=== PATIENT | female | born 1980 | race Caucasian/White ===

== ENCOUNTER 2016-11-22 00:46 | Day surgery (SDC) | payer OTHER ==
[2016-11-22 01:23] VITALS: BMI 22.8
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
[2016-11-22] MEDS ORDERED: ONDANSETRON 4 MG/2 ML VIAL IVPUSH STA (03:50)
[2016-11-22] MEDS ORDERED: morphine CARPU-JECT 2 MG/1 ML DISP.SYRIN IVPUSH ONE (03:50)
[2016-11-22] MEDS ORDERED: FAMOTIDINE 20 MG/50 ML IVPB 20 MG in PREMIX 50 IVPB ONE (03:50)
[2016-11-22] MEDS ORDERED: SODIUM CHLORIDE 1,000 ML IV STA (03:50)
[2016-11-22] MEDS ORDERED: morphine CARPU-JECT 2 MG/1 ML DISP.SYRIN ONE ×2 (03:57→10:17)
[2016-11-22] MEDS ORDERED: ONDANSETRON 4 MG/2 ML VIAL ONE (03:58)
[2016-11-22] MEDS ORDERED: FAMOTIDINE 20 MG/50 ML IVPB 50 ML IVPB ONE (03:58)
[2016-11-22 04:48] LABS: BASOPHIL 0.1 % (0-2.0); EOSINOPHIL 0.1 % (0-4.5); MCH 29.1 pg (25.7-33.7); MCHC 32.2 g/dl (32.0-36.0); MEAN CELL VOLUME 90.3 fl (80-96); MEAN PLT VOLUME 8.8 fl (7.5-11.1); NEUTROPHILS 86.7 % (42.8-82.8); PLATELET COUNT 213 K/MM3 (134-434); WHITE BLOOD COUNT 11.7 K/mm3 (4.0-10.0)
[2016-11-22 04:57] LABS: URINE COLOR YELLOW
[2016-11-22 04:58] LABS: PH,URINE 6.5 (5.0-8.0); URINE APPEARANCE CLEAR; URINE BILIRUBIN NEGATIVE (NEGATIVE); URINE BLOOD NEGATIVE (NEGATIVE); URINE GLUCOSE (UA) NEGATIVE (NEGATIVE); URINE KETONE NEGATIVE (NEGATIVE); URINE LEUK ESTERASE NEGATIVE (NEGATIVE); URINE NITRITE NEGATIVE (NEGATIVE); URINE PROTEIN NEGATIVE (NEGATIVE); URINE UROBILINOGEN 0.2 E.U/dl E.U./dl (0.2-1.0)
[2016-11-22 05:15] LABS: CREATININE 0.6 mg/dL (0.55-1.02); GLUCOSE,RANDOM 118 mg/dL (74-106)
[2016-11-22 05:16] LABS: ALBUMIN 4.2 g/dl (3.4-5.0); ANION GAP 11 (8-16); BILIRUBIN,TOTAL 0.8 mg/dL (0.2-1.0); CO2 26 mmol/L (21-32); SGOT/AST 23 U/L (15-37); TOT PROT 7.3 g/dl (6.4-8.2)
[2016-11-22 05:17] LABS: ALK PHOS 76 U/L (45-117); AMYLASE 34 U/L (25-115); SGPT/ALT 26 U/L (12-78)
[2016-11-22] MEDS ORDERED: METRONIDAZOLE 500 MG PREMIXED 100 ML IVPB ONE (06:34)
[2016-11-22] MEDS ORDERED: LEVOFLOXACIN 500 MG IVPB 100 ML IVPB ONE (06:34)
[2016-11-22] MEDS ORDERED: HYDROmorphone HCL CARPU-JECT 1 MG/1 ML DISP.SYRIN IVPUSH ONE (06:35)
[2016-11-22] MEDS ORDERED: PIPERACILLIN/TAZOB 3.375 GM 3.375 GM in DEXTROSE 5%-WATER - 50 ML IVPB ONE (06:37)
[2016-11-22] MEDS ORDERED: HYDROmorphone HCL CARPU-JECT 1 MG/1 ML DISP.SYRIN ONE (06:59)
[2016-11-22] MEDS ORDERED: PIPERACILLIN/TAZOB 3.375 GM 50 ML IVPB ONE (07:00)
[2016-11-22] MEDS: DEXTROSE 5%-0.45% SALINE 1,000 ML IV SCH ×2 (07:12→07:49)
[2016-11-22] MEDS ORDERED: ACETAMINOPHEN 325 MG TABLET (FP) PO PRN ×4 (07:19→15:48)
[2016-11-22] MEDS ORDERED: ONDANSETRON 4 MG/2 ML VIAL IVPB PRN ×2 (07:19→14:48)
[2016-11-22] MEDS ORDERED: morphine CARPU-JECT 2 MG/1 ML DISP.SYRIN IVPUSH PRN ×2 (07:19→12:30)
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
[2016-11-22] MEDS ORDERED: SODIUM CHLORIDE 1,000 ML IV SCH ×2 (07:30→14:48)
[2016-11-22] MEDS ORDERED: BUPIVACAINE HCL/PF 0.5% (5MG/ML) 10 ML VIAL ONE (12:12)
[2016-11-22] MEDS ORDERED: MIDAZOLAM HCL 2 MG/2 ML SINGLE DOSE VIAL ONE (12:46)
[2016-11-22] MEDS ORDERED: PROPOFOL 20 ML ONE (12:46)
[2016-11-22] MEDS ORDERED: DEXAMETHASONE SOD PHOSPHATE 4 MG/1 ML VIAL ONE (13:03)
[2016-11-22] MEDS ORDERED: ceFAZolin SODIUM 1 GM VIAL ONE (13:03)
[2016-11-22] MEDS ORDERED: ceFAZolin SODIUM 1 GM VIAL IVPB ONE (13:05)
[2016-11-22] MEDS ORDERED: ROCURONIUM BROMIDE 50 MG/5 ML VIAL ONE (13:18)
[2016-11-22] MEDS ORDERED: NEOSTIGMINE METHYLSULFATE 0.5 MG/ML - 10 ML MDV ONE (14:06)
[2016-11-22] MEDS ORDERED: GLYCOPYRROLATE 0.2 MG/1 ML VIAL ONE (14:06)
[2016-11-22] MEDS ORDERED: BUPIVACAINE HCL/PF 0.5% (5MG/ML) 10 ML VIAL IJ ONE (14:14)
--- NOTE | 2016-11-22 14:22 | CONSULT ---
Consult Consult Specialty:: infectious diseases Reason for Consultation:: appendicitis - History of Present Illness Chief Complaint: abd pain History of Present Illness: healthy 35 year old female who presented to the ED overnight complaining of abdominal pain. The pain began gradual yesterday, and worsened overnight. It is worst in the RLQ and radiates to the back. She reports associated nausea. She denies constipation/diarrhea, fevers/chills, dysuria, or any other symptoms. patient was worked and with ct scan showed acute appendicits patient was taken tot he or and was operated patient post op doing well except pain at the site - History Source History Provided By: Patient, Medical Record Limitations to Obtaining History: No Limitations - Smoking History Smoking history: Never smoked Home Medications - Allergies Allergies/Adverse Reactions: Allergies Allergy/AdvReac Type Severity Reaction Status Date / Time No Known Allergies Allergy Verified 11/22/16 01:15 - Home Medications Home Medications: Ambulatory Orders NK [No Known Home Medication] 11/22/16 Review of Systems - Review of Systems Constitutional: reports: No Symptoms Eyes: reports: No Symptoms HENT: reports: No Symptoms Neck: reports: No Symptoms Cardiovascular: reports: No Symptoms Respiratory: reports: No Symptoms Gastrointestinal: reports: Abdominal Pain, Other (rlq) Neurological: reports: No Symptoms Endocrine: reports: No Symptoms Hematology/Lymphatic: reports: No Symptoms Physical Exam Vital Signs: Vital Signs Temperature 97.8 F 11/22/16 09:59 Pulse Rate 78 11/22/16 09:59 Respiratory Rate 18 11/22/16 09:59 Blood Pressure 118/62 11/22/16 09:59 O2 Sat by Pulse Oximetry (%) 100 11/22/16 10:06 Constitutional: Yes: Calm, Mild Distress (post op) Cardiovascular: Yes: Regular Rate and Rhythm Respiratory: Yes: Regular, CTA Bilaterally Gastrointestinal: Yes: Normal Bowel Sounds, Soft Musculoskeletal: Yes: WNL Extremities: Yes: WNL Wound/Incision: Yes: Well Approximated, Dressing Dry and Intact Neurological: Yes: Alert, Oriented Psychiatric: Yes: Alert Imaging - Results Chest X-ray: Report Reviewed, Image Reviewed Cat Scan: Report Reviewed, Image Reviewed Assessment/Plan - Problem (1) Acute appendicitis Code(s): K35.80 - UNSPECIFIED ACUTE APPENDICITIS Qualifiers: Acute appendicitis type: unspecified acute appendicitis type Qualified Code(s): K35.80 - Unspecified acute appendicitis plan will hold of on starting anything as it was clean appendectomy
[2016-11-22] MEDS ORDERED: OXYCODONE/APAP 5/325MG COMBO TABLET PO PRN ×4 (14:24→14:45)
--- NOTE | 2016-11-22 14:37 | CONSULT ---
Consult Consult Specialty:: surgery Reason for Consultation:: appendicitis - History of Present Illness Chief Complaint: rlq pain History of Present Illness: patient with 1 day hx of RLQ pain. +N/V. no fever/chills. +hungry. came to ER and had mild leukocytosis to [address] showing appendicitis with fecalith. - History Source History Provided By: Patient Limitations to Obtaining History: No Limitations - Past Surgical History Additional Surgical History: left leg surgery - Smoking History Smoking history: Never smoked Home Medications - Allergies Allergies/Adverse Reactions: Allergies Allergy/AdvReac Type Severity Reaction Status Date / Time No Known Allergies Allergy Verified 11/22/16 01:15 - Home Medications Home Medications: Ambulatory Orders Oxycodone HCl/Acetaminophen [Percocet 5-325 mg Tablet] 1 tab PO Q4H PRN #30 tablet MDD 6 tabs 11/22/16 Family Disease History - Family Disease History Family History: Unremarkable Review of Systems - Review of Systems Constitutional: denies: Chills, Fever Eyes: denies: Blurred Vision, Photophobia HENT: denies: Difficult Swallowing, Mouth Swelling Neck: denies: Decreased ROM, Lumps Cardiovascular: denies: Chest Pain, Edema Respiratory: denies: Cough, Exercise Intolerance Gastrointestinal: reports: Abdominal Pain, Nausea. denies: Bloating Genitourinary: denies: Burning, Discharge Breasts: denies: Pain, Skin Changes Musculoskeletal: denies: Back Pain, Crepitus Integumentary: denies: Blister, Bruising Neurological: denies: Change in LOC, Change in Speech Endocrine: denies: Excessive Sweating, Flushing Hematology/Lymphatic: denies: Easily Bruised, Excessive Bleeding Psychiatric: denies: Altered Sleep Pattern, Anxiety Physical Exam Vital Signs: Vital Signs Temperature 97.8 F 11/22/16 09:59 Pulse Rate 78 11/22/16 09:59 Respiratory Rate 18 11/22/16 09:59 Blood Pressure 118/62 11/22/16 09:59 O2 Sat by Pulse Oximetry (%) 100 11/22/16 10:06 Constitutional: Yes: No Distress, Calm Eyes: Yes: Conjunctiva Clear, EOM Intact HENT: Yes: Atraumatic, Normocephalic Neck: Yes: Supple, Trachea Midline Cardiovascular: Yes: Regular Rate and Rhythm Respiratory: Yes: Regular, CTA Bilaterally Gastrointestinal: Yes: Soft, Tenderness. No: Distention ...Rectal Exam: Yes: Deferred Renal/: No: CVA Tenderness - Left, CVA Tenderness - Right Breast(s): No: Nipple Inversion, Skin Changes Musculoskeletal: No: Joint Stiffness, Joint Swelling Extremities: No: Calf Tenderness, Erythema Integumentary: No: Erythema, Rash Neurological: Yes: Alert, Oriented Psychiatric: Yes: Alert, Oriented Imaging - Results Cat Scan: Report Reviewed Problem List - Problems (1) Acute appendicitis Assessment/Plan: for lap appy. r/b/a d/w pt. likely d/c home postop rx for percocet transmitted postop instructions given f/u with me in office in 1-2 weeks Code(s): K35.80 - UNSPECIFIED ACUTE APPENDICITIS Qualifiers: Acute appendicitis type: unspecified acute appendicitis type Qualified Code(s): K35.80 - Unspecified acute appendicitis
--- NOTE | 2016-11-22 14:38 | OP ---
Operative Note - Note: Operative Date: 11/22/16 Pre-Operative Diagnosis: appendicitis Operation: lap appendectomy Findings: appendicitis Post-Operative Diagnosis: Same as Pre-op Surgeon: Ej Marks Anesthesia: General Estimated Blood Loss (mls): 5 Operative Report Dictated: Yes
[2016-11-22] MEDS ORDERED: DEXTROSE 5%-0.45% SALINE 1,000 ML IV SCH (14:48)
--- NOTE | 2016-11-22 15:24 | DS ---
Physical Exam: SUBJECTIVE: Patient seen and examined, feeling well except for mild pain at incision site. OBJECTIVE: Vital Signs Period Temp Pulse Resp BP Sys/Rios Pulse Ox Last 24 Hr 97.8 F-98.8 F 78-89 16-18 118-131/62-83 99-100 PHYSICAL EXAM GENERAL: The patient is awake, alert, and fully oriented, in no acute distress. HEAD: Normal with no signs of trauma. EYES: PERRL, extraocular movements intact, sclera anicteric, conjunctiva clear. ENT: Ears normal, nares patent, oropharynx clear without exudates, moist mucous membranes. NECK: Trachea midline, full range of motion, supple. LUNGS: Breath sounds equal, clear to auscultation bilaterally, no wheezes, no crackles, no accessory muscle use. HEART: Regular rate and rhythm, S1, S2 without murmur, rub or gallop. ABDOMEN: Soft, incision site clean/dry/intact, nondistended, normoactive bowel sounds, no guarding, no rebound, no hepatosplenomegaly, no masses. EXTREMITIES: 2+ pulses, warm, well-perfused, no edema. NEUROLOGICAL: Cranial nerves II through XII grossly intact. Normal speech, gait not observed. PSYCH: Normal mood, normal affect. SKIN: Warm, dry, normal turgor, no rashes or lesions noted. LABS Laboratory Results - last 24 hr 11/22/16 11/22/16 11/22/16 03:48 03:52 03:52 WBC 11.7 H RBC 4.52 Hgb 13.1 Hct 40.8 MCV 90.3 MCHC 32.2 RDW 13.0 Plt Count 213 MPV 8.8 Neutrophils % 86.7 H Lymphocytes % 9.1 Monocytes % 4.0 Eosinophils % 0.1 Basophils % 0.1 Sodium 137 Potassium 4.0 Chloride 100 Carbon Dioxide 26 Anion Gap 11 BUN 10 Creatinine 0.6 Creat Clearance w eGFR > 60 Random Glucose 118 H Calcium 9.0 Total Bilirubin 0.8 AST 23 ALT 26 Alkaline Phosphatase 76 Total Protein 7.3 Albumin 4.2 Total Amylase 34 Urine Color Yellow Urine Appearance Clear Urine pH 6.5 Ur Specific [place] 1.025 Urine Protein Negative Urine Glucose (UA) Negative Urine Ketones Negative Urine Blood Negative Urine Nitrite Negative Urine Bilirubin Negative Urine Urobilinogen 0.2 e.u/dl Ur Leukocyte Esterase Negative Urine HCG, Qual Negative Blood Type Antibody Screen 11/22/16 06:35 WBC RBC Hgb Hct MCV MCHC RDW Plt Count MPV Neutrophils % Lymphocytes % Monocytes % Eosinophils % Basophils % Sodium Potassium Chloride Carbon Dioxide Anion Gap BUN Creatinine Creat Clearance w eGFR Random Glucose Calcium Total Bilirubin AST ALT Alkaline Phosphatase Total Protein Albumin Total Amylase Urine Color Urine Appearance Urine pH Ur Specific [place] Urine Protein Urine Glucose (UA) Urine Ketones Urine Blood Urine Nitrite Urine Bilirubin Urine Urobilinogen Ur Leukocyte Esterase Urine HCG, Qual Blood Type B POSITIVE Antibody Screen Negative HOSPITAL COURSE: This is an otherwise healthy 35 year old female who presented to the ED overnight complaining of abdominal pain and was admitted with acute appendicitis. She underwent appendectomy today and is doing well post-op. She has been cleared for discharge by surgery. She will be discharged with Percocet for pain. No indication for antibiotics per ID. Date of Admission:11/22/16 Date of Discharge: 11/22/16 Minutes to complete discharge: 35 Discharge Summary Reason For Visit: ACUTE APPENDICITIS Current Active Problems Acute appendicitis (Acute) DVT prophylaxis (Acute) Condition: Good - Instructions Diet, Activity, Other Instructions: can have liquids then regular diet. can shower tomorrow. no heavy lifting 30 lbs x 3 days. 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 Referrals: jE Marks MD [Staff Physician] - STAFF,NOT ON [Primary Care Provider] - - Home Medications Comprehensive Discharge Medication List: Ambulatory Orders Oxycodone HCl/Acetaminophen [Percocet 5-325 mg Tablet] 1 tab PO Q4H PRN #30 tablet MDD 6 tabs 11/22/16 Problem List - Problems (1) Acute appendicitis Code(s): K35.80 - UNSPECIFIED ACUTE APPENDICITIS Qualifiers: Acute appendicitis type: unspecified acute appendicitis type Qualified Code(s): K35.80 - Unspecified acute appendicitis (2) DVT prophylaxis Code(s): HGL0696 - This patient is new to me today: No Emergency Visit: Yes ED Registration Date: 11/21/16 Care time: The patient presented to the Emergency Department on the above date and was hospitalized for further evaluation of their emergent condition. Critical Care patient: No - Discharge Referral Referred to [facility] Med [facility] No
--- NOTE | 2016-11-22 15:37 | OP ---
DATE OF OPERATION: 11/22/2016 PREOPERATIVE DIAGNOSIS: Appendicitis. POSTOPERATIVE DIAGNOSIS: Appendicitis. PROCEDURE: Laparoscopic appendectomy. SURGEON: Rebeca Marks MD ESTIMATED BLOOD LOSS: Minimal. FINDINGS: Large dilated appendix. OPERATIVE NOTE IN DETAIL: Patient was brought to the operating room after confirming name, date of , and medical record number. Placed in supine position. SCDs for DVT prophylaxis. She received appropriate perioperative antibiotics. She was then induced and intubated by the anesthesiologist, and she had a Collazo catheter placed under sterile conditions. She was then prepped and draped in usual sterile fashion. A timeout was then performed. A 1-inch incision was made infraumbilically as I did not want to go through her prior belly button ring. I bluntly dissected down to the fascia and used electrocautery to score the anterior sheath. I then lifted up the abdominal wall, continued to go through the fascia with electrocautery, and then used a Shanelle clamp to go through her peritoneum. At this point, I placed my finger inside the abdomen, ensured no adhesions, and then placed a 12-mm balloon Berna-type trocar inside the abdomen. I then insufflated the abdomen to a pressure of 15 mmHg. I then placed a 5-mm trocar in the suprapubic region and in the left lower quadrant. This was done under transillumination to avoid injury to the abdominal wall blood vessels. She was then placed in Trendelenburg position with the right side up, and then, I draped the omentum out of the pelvis and over the stomach. I then was able to roll the terminal ileum medially a little bit, and then, I found a large dilated appendix. Once with this dilated appendix, I peeled the omentum off of it. I dissected the base with a [place] dissector, and I fired a blue-load stapler at the base after confirming no injury to the ileocecal valve, and then, I used a white load to take the mesentery of the appendix. I then irrigated and aspirated out the fluid, ensured perfect hemostasis, and then desufflated the abdomen. I then removed the ports and then closed the infraumbilical fascia with a [id number] 0 Vicryl suture. The skin and subcutaneous tissues were then reinsured for hemostasis and then closed with 4-0 Monocryl in a subcutaneous fashion. Dermabond was then applied. The Collazo catheter was then removed. All counts were correct. REBECA MARKS M.D. NICHOLAS/[id number]
[2016-11-22] MEDS ORDERED: oxyCODONE HCL 5 MG TABLET PO PRN ×2 (15:47→15:48)
[2016-11-22 17:25] VITALS: TEMP 99
[2016-11-22] MEDS ORDERED: PIPERACILLIN/TAZOB 3.375 GM/50 ML PRE-DOCKED IVPB SCH (18:00)
[2016-11-22 20:06] VITALS: BP 129/72; PULSE 77
--- NOTE | 2016-11-26 13:57 | PATH ---
Surgical Pathology Report Patient Name: ETHAN WOODRUFF [facility]. Rec. #: [id number] /Age/Gender: 1980 (Age: 35) / F Account: [id number] Location: AMBULATORY SURG Taken: 11/22/2016 Received: 11/23/2016 Reported: 11/26/2016 Physicians: Ej Marks MD Specimen(s) Received APPENDIX Clinical History Acute appendicitis Final Diagnosis APPENDIX, APPENDECTOMY: MARKED ACUTE HEMORRHAGIC APPENDICITIS AND PERIAPPENDICITIS. Electronically Signed Boy Yoo M.D. Gross Description Received in formalin, labeled "appendix" is a 5 cm in length vermiform appendix with a stapled margin of resection and moderate attached fat. The serosa is hunt-purple with attached exudate. Sectioning reveals a hemorrhagic lumen with focal pus. The wall of the appendix averages 0.2 cm in thickness. Distilling Department Supervisor sections are submitted in one cassette. /11/23/201611/23/2016
== END 2016-11-22 19:15 | disposition home or self-care (01) ==
LOC: JER 00:46 → JASUSAT 06:47 → UNDOADMIN 06:47 → JERBED 06:47 → JSAMEDAYSX 10:08 → JASUSAT 19:15
PROVIDERS: ATTEND Surgery
PROC: 0DTJ4ZZ Resection of Appendix, Percutaneous Endoscopic Approach (ICD-10-PCS; principal; 2016-11-22 11:30)
DX: K35.80 Unspecified acute appendicitis (principal)
CPT/HCPCS: 36415; 71010-TC; 74177-TC; 80053; 81003; 82150; 84703; 85025; 86850; 86900; 86901; 88304-TC; 94760; 99283-25

== ENCOUNTER 2017-08-30 09:26 | Emergency (ER) | payer OTHER ==
[2017-08-30 09:30] VITALS: BP 132/76; PULSE 83; TEMP 98.5; BMI 22.6
[2017-08-30 10:12] LABS: MCHC 33.2 g/dl (32.0-36.0); MEAN CELL VOLUME 90.4 fl (80-96); MEAN PLT VOLUME 7.3 fl (7.5-11.1); PLATELET COUNT 224 K/MM3 (134-434); RDW 12.9 % (11.6-15.6); WHITE BLOOD COUNT 4.5 K/mm3 (4.0-10.0)
[2017-08-30] MEDS ORDERED: KETOROLAC TROMETHAMINE 60 MG/2 ML VIAL IM ONE (11:02)
[2017-08-30] MEDS ORDERED: KETOROLAC TROMETHAMINE 60 MG/2 ML VIAL ONE (11:11)
--- NOTE | 2017-08-30 11:51 | PDOC ---
History of Present Illness - General Chief Complaint: Sore Throat Stated Complaint: THROAT PAIN Time Seen by Provider: 08/30/17 09:54 History Source: Patient Exam Limitations: No Limitations - History of Present Illness Initial Comments: 08/30/17 11:42 Patient is a 36-year-old female, recently with upper respiratory cough and cold- like symptoms presents with submandibular palpated lymph node and right precervical lymph node. Pain when swallowing to right side of throat. Patient denies any lesions to posterior pharynx, no fever. Past Medical History: Denies. Allergies: No known allergies Medications: None Family History: Non-contributory Social History: Denies smoking, alcohol use, or IVDU Review of Systems GENERAL/CONSTITUTIONAL: No fever or chills. No weakness. No weight change. HEAD, EYES, EARS, NOSE AND THROAT: No change in vision. No ear pain or discharge. No sore throat. Palpable Lymph nodes to right precervical and submandibular. CARDIOVASCULAR: No chest pain or shortness of breath. RESPIRATORY: No cough, wheezing, or hemoptysis. GASTROINTESTINAL: No nausea, vomiting, diarrhea or constipation. No rectal bleeding. GENITOURINARY: No dysuria, frequency, or change in urination. MUSCULOSKELETAL: No joint or muscle swelling or pain. No neck or back pain. SKIN AND BREASTS: No rash or easy bruising. NEUROLOGIC: No headache, vertigo, loss of consciousness, or loss of sensation. PSYCHIATRIC: No depression or anxiety. ENDOCRINE: No increased thirst. No abnormal weight change. HEMATOLOGIC/LYMPHATIC: No anemia, easy bleeding, or history of blood clots. ALLERGIC/IMMUNOLOGIC: No hives or skin allergy. No latex allergy. Physical Exam: GENERAL: The patient is awake, alert, and fully oriented, in no acute distress. HEAD: Normal with no signs of trauma. No adhesions, no lesions. EYES: Pupils equal, round and reactive to light, extraocular movements intact, sclera anicteric, conjunctiva clear. ENT: Ears normal, nares patent, oropharynx clear without exudates. Moist mucous membranes. No uvula deviation. NECK: Normal range of motion, right anterior cervical lymphadenopathy and submandibular palpable lymph node. No surrounding erythema, no evidence of infection.. LUNGS: Breath sounds equal, clear to auscultation bilaterally. No wheezes, and no crackles. HEART: Regular rate and rhythm, normal S1 and S2 without murmur, rub or gallop. ABDOMEN: Soft, nontender, normoactive bowel sounds. No guarding, no rebound. No masses. No bruising or abrasions MUSCULOSKELETAL: Normal range of motion, no edema. No clubbing or cyanosis. No cords, erythema, or tenderness. No CVA Tenderness with fist. NEUROLOGICAL: Cranial nerves II through XII grossly intact. Normal speech, normal gait. SKIN: Warm, Dry, normal turgor, no rashes or lesions noted. Past History - Past Medical History Allergies/Adverse Reactions: Allergies Allergy/AdvReac Type Severity Reaction Status Date / Time No Known Allergies Allergy Verified 08/30/17 09:30 Home Medications: Ambulatory Orders NK [No Known Home Medication] 08/30/17 Other medical history: DENIES. - Surgical History Abdominal Surgery: Yes Appendectomy: Yes - Suicide/Smoking/Psychosocial Hx Smoking History: Never smoked Hx Alcohol Use: Yes (SOCIAL.) Drug/Substance Use Hx: No Substance Use Type: Alcohol *Physical Exam - Vital Signs Last Vital Signs Temp Pulse Resp BP Pulse Ox 98.5 F 83 18 132/76 100 08/30/17 09:27 08/30/17 09:27 08/30/17 09:27 08/30/17 09:27 08/30/17 09:27 ED Treatment Course - LABORATORY CBC & Chemistry Diagram: 08/30/17 10:00 - ADDITIONAL ORDERS Additional order review: Laboratory Results 08/30/17 11:15 Urine HCG, Qual Negative 08/30/17 10:00 Group A Strep Rapid Antigen - Final Throat 08/30/17 10:00 RBC 4.39 MCV 90.4 MCHC 33.2 RDW 12.9 MPV 7.3 L D Medical Decision Making - Medical Decision Making 08/30/17 11:45 A/P: Patient here for evaluation of palpable submandibular and right anterior cervical lymph node. Patient denies any sore throat, only pain with swallowing to right lateral neck. Patient denies any trauma, there are no lesions to scalp or face or mouth. No evidence of dental injury or infection. Plan: CBC and rapid strep Urine 60 mg IM times one 08/30/17 11:51 Laboratory Results - last 24 hr 08/30/17 08/30/17 10:00 11:15 WBC 4.5 D RBC 4.39 Hgb 13.2 Hct 39.7 MCV 90.4 MCH 30.0 MCHC 33.2 RDW 12.9 Plt Count 224 MPV 7.3 L D Urine HCG, Qual Negative CBC is unremarkable, urine was negative, Toradol given with good result. 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 She needs to go back to work at 1:00 I advised patient that if she is not feeling well she should not be driving children in a bus, she was given Toradol injection may cause mild drowsiness. She verbalized understanding. She states she will make an appointment herself to follow-up. *DC/Admit/Observation/Transfer Diagnosis at time of Disposition: Lymphadenopathy of head and neck - Discharge Dispostion Disposition: HOME Condition at time of disposition: Good Admit: No - Referrals Referrals: Omar Steven MD [Staff Physician] - - Patient Instructions Additional Instructions: Recommend follow-up as soon as possible with primary care doctor and ENT. If any difficulty swallowing, chest pain or shortness of breath or any other concerns return to ER - Post Discharge Activity Forms/Work/School Notes: Back to Work
--- NOTE | 2017-09-02 18:55 | PDOC ---
Patient Follow-up (Call Back) - Post ED Follow - Up Chief Complaint: Sore Throat Condition at time of discharge: Good Disposition at time of original discharge: HOME Reason for Call Back: Abnwl. Microbiology (Pt. grew Strep group F. Called pt. and she states the lymph node is less, but she still has a sore throat. Prescribed Amoxicillin 500 BID x1 week.)
== END 2017-08-30 12:04 | disposition home or self-care (01) ==
LOC: JERFT 09:26
PROC: 3E0233Z Introduction of Anti-inflammatory into Muscle, Percutaneous Approach (ICD-10-PCS; principal; 2017-08-30)
DX: R59.0 Localized enlarged lymph nodes (principal)
CPT/HCPCS: 36415; 84703; 85027; 87070; 87077; 87430; 96372; 99281-25

== ENCOUNTER 2017-10-31 09:10 | Emergency (ER) | payer OTHER ==
[2017-10-31 09:25] VITALS: BMI 22.3
[2017-10-31] MEDS ORDERED: ACETAMINOPHEN 500 MG TABLET (FP) PO ONE (10:16)
[2017-10-31 10:18] LABS: BASO % 0.2 % (0-2.0); EOS % 0.6 % (0-4.5); MCH 29.7 pg (25.7-33.7); MCHC 32.5 g/dl (32.0-36.0); MEAN CELL VOLUME 91.5 fl (80-96); MEAN PLT VOLUME 7.8 fl (7.5-11.1); NEUT % 62.9 % (42.8-82.8); PLATELET COUNT 216 K/MM3 (134-434); RDW 12.7 % (11.6-15.6)
[2017-10-31 10:26] LABS: URINE APPEARANCE CLEAR; URINE BILIRUBIN NEGATIVE (NEGATIVE); URINE BLOOD NEGATIVE (NEGATIVE); URINE COLOR COLORLESS; URINE GLUCOSE (UA) NEGATIVE (NEGATIVE); URINE KETONE NEGATIVE (NEGATIVE); URINE LEUK ESTERASE NEGATIVE (NEGATIVE); URINE NITRITE NEGATIVE (NEGATIVE); URINE PROTEIN NEGATIVE (NEGATIVE); URINE UROBILINOGEN NEGATIVE mg/dL (0.2-1.0)
--- NOTE | 2017-10-31 10:28 | PDOC ---
History of Present Illness - General Chief Complaint: Pain Stated Complaint: ABD PAIN () Time Seen by Provider: 10/31/17 09:37 - History of Present Illness Initial Comments: 10/31/17 10:24 "The patient is a 36 year old female, , 1 month by LMP, no significant past medical history, who presents to the emergency department with abdominal pain for about 3 days. She reports having a lower abdominal cramping, which she ranks a 8/10 in pain. She also notes having nausea without vomiting. She reports having a positive test about 1-2 days ago. LMP was . Denies vaginal bleeding currently but had some spotting last week. She denies recent fevers, chills, or dizziness. She denies recent vomit, diarrhea or constipation. She denies recent dysuria, frequency, urgency or hematuria. She denies recent chest pain or shortness of breath. Allergies: NKA Past surgical history: Appendectomy Social history: Nonsmoker. Denies EtOH use and recreational drug use. Primary Care Physician: Not on Staff " Past History - Past Medical History Allergies/Adverse Reactions: Allergies Allergy/AdvReac Type Severity Reaction Status Date / Time No Known Allergies Allergy Verified 10/31/17 09:21 Home Medications: Ambulatory Orders NK [No Known Home Medication] 10/31/17 COPD: No DVT: No Dementia: No - Surgical History Abdominal Surgery: Yes Appendectomy: Yes - Immunization History Immunization Up to Date: Yes - Suicide/Smoking/Psychosocial Hx Smoking History: Never smoked Have you smoked in the past 12 months: No Information on smoking cessation initiated: No Hx Alcohol Use: No Drug/Substance Use Hx: No Substance Use Type: Alcohol Review of Systems - Review of Systems Comments:: 10/31/17 10:25 "GENERAL/CONSTITUTIONAL: No fever or chills. No weakness. HEAD, EYES, EARS, NOSE AND THROAT: No change in vision. No ear pain or discharge. No sore throat. CARDIOVASCULAR: No chest pain or shortness of breath. RESPIRATORY: No cough, wheezing, or hemoptysis. GASTROINTESTINAL: +abdominal pain and nausea. No vomiting, diarrhea or constipation. GENITOURINARY:. No dysuria, frequency, or change in urination. MUSCULOSKELETAL: No joint or muscle swelling or pain. No neck or back pain. SKIN: No rash NEUROLOGIC: No TORRES, No vertigo, loss of consciousness, or change in strength/ sensation. ENDOCRINE: No increased thirst. No abnormal weight change. HEMATOLOGIC/LYMPHATIC: No anemia, easy bleeding, or history of blood clots. ALLERGIC/IMMUNOLOGIC: No hives or skin allergy. " *Physical Exam - Vital Signs Last Vital Signs Temp Pulse Resp BP Pulse Ox 97.9 F 74 16 110/66 99 10/31/17 09:21 10/31/17 09:21 10/31/17 09:21 10/31/17 09:21 10/31/17 09:21 - Physical Exam Comments: 10/31/17 10:25 "GENERAL: Awake, alert, and fully oriented, in no acute distress HEAD: No signs of trauma EYES: PERRLA, EOMI, sclera anicteric, conjunctiva clear ENT: Auricles normal inspection, hearing grossly normal, nares patent, oropharynx clear without exudates. Moist mucosa NECK: Nontender, no stepoffs, Normal ROM, supple, no lymphadenopathy, JVD, or masses LUNGS: Breath sounds equal, clear to auscultation bilaterally. No wheezes, and no crackles HEART: Regular rate and rhythm, normal S1 and S2, no murmurs, rubs or gallops ABDOMEN: +Mild suprapubic and epigastric pain, normoactive bowel sounds. No guarding, no rebound. No masses : No CMT, no CVAT, os closed, no bleeding/discharge EXTREMITIES: Normal range of motion, no edema. No clubbing or cyanosis. No cords, erythema, or tenderness NEUROLOGICAL: Cranial nerves II through XII intact. 5/5 strength and sensation in all extremities, Normal speech, normal gait SKIN: Warm, Dry, normal turgor, no rashes or lesions noted. " ED Treatment Course - LABORATORY CBC & Chemistry Diagram: 10/31/17 10:10 10/31/17 10:10 - ADDITIONAL ORDERS Additional order review: Laboratory Results 10/31/17 10:10 Lipase Cancelled - RADIOLOGY Radiology Studies Ordered: Category Date Time Status TRANSVAGINAL ULTRASOUND US [US] Stat Ultrasound 10/31/17 09:54 Ordered Medical Decision Making - Medical Decision Making 10/31/17 10:26 36 F with lower abdominal pain with recent + UPT. Will r/o ectopic with TVUS. Pt has had prior appendectomy. - Labs, T&S, beta HCG - TVUS - UA/UCx 10/31/17 12:52 TVUS with single live IUP @ 6 weeks. Pt informed of results. Agrees to f/u with sculpture instructor this week. I discussed the physical exam findings, ancillary test results and final diagnoses with the patient. I answered all of the patient's questions. The patient was satisfied with the care received and felt comfortable with the discharge plan and treatment plan. The patient agrees to follow up with sculpture instructor physician within 24-72 hours. *DC/Admit/Observation/Transfer Diagnosis at time of Disposition: Abdominal pain affecting - Discharge Dispostion Disposition: HOME - Referrals Referrals: STAFF,NOT ON [Primary Care Provider] - Navneet Connor MD [Staff Physician] - - Patient Instructions Printed Discharge Instructions: DI for Abdominal Pain -- Early Additional Instructions: You must follow up with an sculpture instructor within 1 week for a re-evaluation. If you experience any worsening pain, bleeding, or any other concerning symptoms , return to the ER immediately. Otherwise, call the number provided to make an appointment with our sculpture instructor clinic. - Post Discharge Activity - Attestations Physician Attestion: 10/31/17 12:51 I, Dr. Mayco Steward MD, attest that this document has been prepared under my direction and personally reviewed by me in its entirety. I further attest, that it accurately reflects all work, treatment, procedures and medical decision -making performed by me.
[2017-10-31 10:39] LABS: ALBUMIN 3.9 g/dl (3.4-5.0); ANION GAP 5 (8-16); CO2 28 mmol/L (21-32); GLUCOSE,RANDOM 81 mg/dL (74-106)
[2017-10-31 10:57] LABS: ALK PHOS 76 U/L (45-117); BILIRUBIN,TOTAL 0.6 mg/dL (0.2-1.0); CREATININE 0.5 mg/dL (0.55-1.02); SGOT/AST 15 U/L (15-37); SGPT/ALT 21 U/L (12-78)
[2017-10-31] MEDS ORDERED: ACETAMINOPHEN 500 MG TABLET (FP) ONE (11:13)
[2017-10-31 12:17] VITALS: BP 110/57; PULSE 73; TEMP 98.1
[2017-10-31 13:49] LABS: URINE LEUK ESTERASE Negative (NEGATIVE)
== END 2017-10-31 13:01 | disposition home or self-care (01) ==
LOC: JER 09:10
DX: O26.891 Other specified pregnancy related conditions, first trimester (principal); R10.84 Generalized abdominal pain; Z3A.01 Less than 8 weeks gestation of pregnancy
CPT/HCPCS: 36415; 76830-TC; 80053; 81003; 83690; 84702; 85025; 86850; 86900; 86901; 87086; 99283-25

== ENCOUNTER 2019-12-08 17:03 | Emergency (ER) | payer OTHER ==
[2019-12-08 17:37] VITALS: BMI 22.6
--- NOTE | 2019-12-08 17:37 | PDOC ---
Rapid Medical Evaluation Chief Complaint: Pain, Acute Time Seen by Provider: 12/08/19 17:34 Medical Evaluation: Allergies Allergy/AdvReac Type Severity Reaction Status Date / Time No Known Allergies Allergy Verified 12/08/19 17:33 12/08/19 17:34 I have performed a brief in-person evaluation of this patient. The patient presents with a chief complaint of: 14wks with N/V and suprapubic discomfort since this AM. Denies dysuria but report urinary urgency. Denies vaginal bleeding Pertinent physical exam findings: afebrile in NAD I have ordered the following:cbc, cmp, ua, Ucx The patient will proceed to the ED for further evaluation. Discharge Disposition - Diagnosis Nausea/vomiting in - Discharge Dispostion Condition at time of disposition: Stable - Referrals - Patient Instructions - Post Discharge Activity
[2019-12-08 18:16] LABS: BASO % 0.1 % (0-2.0); EOS % 0.7 % (0-4.5); HEMATOCRIT 44.3 % (32.4-45.2); HEMOGLOBIN 14.9 GM/dL (10.7-15.3); LYMPH % 7.4 % (8-40); MCHC 33.6 g/dl (32.0-36.0); MEAN CELL VOLUME 92.4 fl (80-96); MEAN PLT VOLUME 7.9 fl (7.5-11.1); NEUT % 87.8 % (42.8-82.8); PLATELET COUNT 263 K/MM3 (134-434); RBC 4.79 M/mm3 (3.60-5.2); RDW 13.3 % (11.6-15.6); WHITE BLOOD COUNT 11.9 K/mm3 (4.0-10.0)
[2019-12-08 18:19] LABS: EPI CELLS 6.4 /HPF (0-5/HPF); HYALINE CASTS 17 /lpf (0-8); URINE APPEARANCE CLEAR; URINE BACTERIA 66.6 /hpf (NEGATIVE); URINE BILIRUBIN NEGATIVE (NEGATIVE); URINE COLOR DK YELLOW; URINE GLUCOSE (UA) NEGATIVE (NEGATIVE); URINE KETONE TRACE (NEGATIVE); URINE LEUK ESTERASE 1+ (NEGATIVE); URINE NITRITE NEGATIVE (NEGATIVE); URINE PROTEIN 1+ (NEGATIVE); URINE RBC 2 /hpf (0-4); URINE UROBILINOGEN 0.2 mg/dL (0.2-1.0); URINE WBC 8 /hpf (0-5)
[2019-12-08 19:03] LABS: ALBUMIN 3.8 g/dl (3.4-5.0); BILIRUBIN,TOTAL 0.5 mg/dL (0.2-1); BLOOD UREA NITROGEN 15.7 mg/dL (7-18); CREATININE 0.6 mg/dL (0.55-1.3); POTASSIUM 3.8 mmol/L (3.5-5.1); TOT PROT 7.5 g/dl (6.4-8.2)
[2019-12-08] MEDS ORDERED: SODIUM CHLORIDE 0.9% 500 ML INFUS.BAG IV ONE (19:19)
--- NOTE | 2019-12-08 19:31 | PDOC ---
Attending Attestation - Resident Resident Name: Heather Cortezhan - ED Attending Attestation I have performed the following: I have examined & evaluated the patient, The case was reviewed & discussed with the resident, I agree w/resident's findings & plan - HPI HPI: 12/08/19 20:22 see resident hpi - Physicial Exam PE: 12/08/19 20:22 see resident exam 12/08/19 20:22 - Medical Decision Making 12/08/19 20:22 39-year-old gravid female with abdominal pain and recent sick contacts with similar symptoms Patient's pain resolved after 1 L of IV fluid normal saline Urine suggest urinary tract infection, will treat in this gravid female and culture Pelvic ultrasound shows a live IUP Plan for DC with outpatient 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
--- NOTE | 2019-12-08 20:55 | PDOC ---
History of Present Illness - General Chief Complaint: Pain Stated Complaint: 14 WKS /VOMITING Time Seen by Provider: 12/08/19 17:34 - History of Present Illness Initial Comments: Ms. Lobato is a 39 y/o female @ 14 weeks presenting today with nausea and vomiting. Reports vomiting x3 that started this morning and 1 episode of diarrhea. Denies fever/chills. Reports left sided abdominal pain without radiation worse on palpation. Denies chest pain/shortness of breath. Denies lower extremity swelling. Denies dysuria. Denies vaginal bleeding or discharge. No blood in the stool or vomit. SocHx: denies etoh/smoking/drugs, reports that her boyfriend has similar symptoms. Travel Hx: recently returned from [place] Past History - Past Medical History Allergies/Adverse Reactions: Allergies Allergy/AdvReac Type Severity Reaction Status Date / Time No Known Allergies Allergy Verified 12/08/19 17:33 Home Medications: Ambulatory Orders Cephalexin [Keflex] 500 mg PO QID 7 Days #28 capsule 12/08/19 COPD: No DVT: No Dementia: No - Surgical History Abdominal Surgery: Yes Appendectomy: Yes - Reproductive History (#): 1 Para: 0 - Immunization History Immunization Up to Date: Yes - Psycho Social/Smoking Cessation Hx Smoking History: Never smoked Have you smoked in the past 12 months: No Information on smoking cessation initiated: No Hx Alcohol Use: No Drug/Substance Use Hx: No Substance Use Type: Alcohol Review of Systems - Review of Systems Comments:: GENERAL/CONSTITUTIONAL: No fever or chills. No weakness._ HEAD, EYES, EARS, NOSE AND THROAT: No change in vision. No change in hearing. No sore throat._ CARDIOVASCULAR: No chest pain or shortness of breath_ RESPIRATORY: Denies cough, hemoptysis_ GASTROINTESTINAL: Reports nausea, vomiting, diarrhea. Reports abdominal pain. GENITOURINARY: No dysuria, frequency, or change in urination._ MUSCULOSKELETAL: No joint or muscle swelling or pain. No neck or back pain._ SKIN: No rash_ NEUROLOGIC: No headache, vertigo, loss of consciousness, or change in strength/ sensation._ ENDOCRINE: No increased thirst. No abnormal weight change_ HEMATOLOGIC/LYMPHATIC: No anemia, easy bleeding, or history of blood clots._ ALLERGIC/IMMUNOLOGIC: No hives or skin allergy._ *Physical Exam - Vital Signs Last Vital Signs Temp Pulse Resp BP Pulse Ox 98.7 F 91 H 16 98/54 L 100 12/08/19 20:43 12/08/19 20:43 12/08/19 17:34 12/08/19 20:43 12/08/19 20:43 - Physical Exam GENERAL: Awake, alert, and oriented to person/place/time, in no acute distress_ HEAD: No signs of trauma, normoc ephalic, atraumatic _ EYES: PERRLA, EOMI, sclera anicteric, conjunctiva clear_ ENT: Hearing grossly normal, nares patent, oropharynx clear without exudates. No uvular deviation. Moist mucosa_ NECK: Normal ROM, supple, no lymphadenopathy, JVD, or masses_ LUNGS: No distress, speaks in full sentences, clear to auscultation bilaterally _ HEART: Regular rate and rhythm, normal S1 and S2, no murmurs appreciated, peripheral pulses normal and equal bilaterally._ ABDOMEN: Soft, TTP LUQ LLQ RLQ, normoactive bowel sounds. No guarding, no rebound. No masses_ EXTREMITIES: Normal inspection, Normal range of motion, no edema. No clubbing or cyanosis_ NEUROLOGICAL: Cranial nerves II through XII grossly intact. Normal speech, normal gait, no focal sensorimotor deficits _ SKIN: Warm, Dry, normal turgor, no rashes or lesions noted_ PELVIC: Normal external exam. Mild physiologic discharge in posterior fornix. No bleeding. No purulent discharge. Os closed. No CMT. No adnexal tenderness bilaterally. ED Treatment Course - LABORATORY CBC & Chemistry Diagram: 12/08/19 17:45 12/08/19 17:45 - ADDITIONAL ORDERS Additional order review: Laboratory Results 12/08/19 12/08/19 17:45 17:45 Sodium 136 Potassium 3.8 Chloride 103 Carbon Dioxide 26 Anion Gap 8 BUN 15.7 Creatinine 0.6 Est GFR (CKD-EPI)AfAm 134.96 Est GFR (CKD-EPI)NonAf 116.44 Random Glucose 81 Calcium 9.0 Total Bilirubin 0.5 AST 16 ALT 24 Alkaline Phosphatase 72 Total Protein 7.5 Albumin 3.8 Beta HCG, Quant 64470.6 Urine Color Dk yellow Urine Appearance Clear Urine pH 5.0 D Ur Specific [place] 1.031 Urine Protein 1+ H Urine Glucose (UA) Negative Urine Ketones Trace H Urine Blood Negative Urine Nitrite Negative Urine Bilirubin Negative Urine Urobilinogen 0.2 Ur Leukocyte Esterase 1+ H Urine WBC (Auto) 8 Urine RBC (Auto) 2 Urine Casts (Auto) 17 U Epithel Cells (Auto) 6.4 Urine Bacteria (Auto) 66.6 12/08/19 17:45 RBC 4.79 MCV 92.4 MCHC 33.6 RDW 13.3 MPV 7.9 Neutrophils % 87.8 H D Lymphocytes % 7.4 L D Monocytes % 4.0 Eosinophils % 0.7 Basophils % 0.1 - RADIOLOGY Radiology Studies Ordered: Category Date Time Status <14WKS US [US] Stat Ultrasound 12/08/19 18:07 Completed - Medications Given in the ED: ED Medications Discontinued Medications Generic Name Dose Route Start Last Admin Trade Name Freq PRN Reason Stop Dose Admin Sodium Chloride 1,000 ml 12/08/19 19:19 12/08/19 19:33 Normal Saline - IV 12/08/19 19:20 1,000 ml ONCE ONE Administration Medical Decision Making - Medical Decision Making 39F @ 14 weeks, presenting today with nausea/vomiting/diarrhea, and left sided abdominal pain. -TVUS -beta HCG quant -cbc, cmp -IV fluids 12/08/19 20:00 Labs reviewed. Pt reassessed. Reports significant improvement. UA shows mild leuk esterase 1+. Laboratory Results - last 24 hr 12/08/19 12/08/19 12/08/19 17:45 17:45 17:45 WBC 11.9 H RBC 4.79 Hgb 14.9 Hct 44.3 MCV 92.4 MCH 31.0 MCHC 33.6 RDW 13.3 Plt Count 263 D MPV 7.9 Absolute Neuts (auto) 10.5 H Neutrophils % 87.8 H D Lymphocytes % 7.4 L D Monocytes % 4.0 Eosinophils % 0.7 Basophils % 0.1 Nucleated RBC % 0 Sodium 136 Potassium 3.8 Chloride 103 Carbon Dioxide 26 Anion Gap 8 BUN 15.7 Creatinine 0.6 Est GFR (CKD-EPI)AfAm 134.96 Est GFR (CKD-EPI)NonAf 116.44 Random Glucose 81 Calcium 9.0 Total Bilirubin 0.5 AST 16 ALT 24 Alkaline Phosphatase 72 Total Protein 7.5 Albumin 3.8 Beta HCG, Quant 29163.6 Urine Color Dk yellow Urine Appearance Clear Urine pH 5.0 D Ur Specific [place] 1.031 Urine Protein 1+ H Urine Glucose (UA) Negative Urine Ketones Trace H Urine Blood Negative Urine Nitrite Negative Urine Bilirubin Negative Urine Urobilinogen 0.2 Ur Leukocyte Esterase 1+ H Urine WBC (Auto) 8 Urine RBC (Auto) 2 Urine Casts (Auto) 17 U Epithel Cells (Auto) 6.4 Urine Bacteria (Auto) 66.6 12/08/19 20:54 TVUS shows single live intra uterine at 15 weeks 0 days and 4cm x 5cm right ovarian cyst. Will plan to d/c home with instructions to stay hydrated with PO fluids. Keflex 500 mg QID for 1 week for UTI. All questions answered. Pt verbalized understanding and agreement with plan. Return precautions given. Discharge - Discharge Information Problems reviewed: Yes Clinical Impression/Diagnosis: Nausea/vomiting in Condition: Stable Disposition: HOME - Admission No - Additional Discharge Information Prescriptions: Cephalexin [Keflex] 500 mg PO QID 7 Days #28 capsule - Follow up/Referral Referrals: Graeme Antoine MD [Staff Physician] - Michelle Alaniz DO [Staff Physician] - - Patient Discharge Instructions Patient Printed Discharge Instructions: DI for Hyperemesis Gravidarum, DI for Vomiting -- Adult Additional Instructions: Please take Keflex 500 mg four times per day for 1 week. Please keep yourself hydrated with fluids as much as possible. If you experience any new, worsening, or concerning symptoms, including high fever, vaginal bleeding, severe abdominal pain, dizziness, or any other concerns , please return to the emergency department. - Post Discharge Activity
[2019-12-08 21:13] VITALS: BP 101/57; PULSE 90; TEMP 98.3
== END 2019-12-08 21:10 | disposition home or self-care (01) ==
LOC: JER 17:03
DX: O26.892 Other specified pregnancy related conditions, second trimester (principal); O21.9 Vomiting of pregnancy, unspecified; O23.42 Unspecified infection of urinary tract in pregnancy, second trimester; Z3A.15 15 weeks gestation of pregnancy
CPT/HCPCS: 36415; 76801-TC; 80053; 81003; 84702; 85025; 87086; 99282-25

== ENCOUNTER 2020-08-24 13:26 | Emergency (ER) | payer OTHER ==
--- NOTE | 2020-08-24 13:32 | PDOC ---
Rapid Medical Evaluation Time Seen by Provider: 08/24/20 13:31 Medical Evaluation: Allergies Allergy/AdvReac Type Severity Reaction Status Date / Time No Known Allergies Allergy Verified 12/08/19 17:33 08/24/20 13:32 I performed a brief in-person evaluation of this patient. Pt is a 39 y/o female who presents to the ED secondary to having a cyst on her R ovary states pain is worse over the last few days. Pt has known abt the cyst since and her baby is 12 weeks old. Has a Nexplant in for contrac eption. + diarrhea. Pertinent physical exam findings: + RLQ abd tenderness to palpation I have ordered the following: labs, urine preg, imaging deferred to treating provider Patient to proceed to ED for further evaluation. Discharge Disposition - Diagnosis Right sided abdominal pain - Referrals - Patient Instructions - Post Discharge Activity
[2020-08-24 13:42] VITALS: BP 122/89; PULSE 101; TEMP 99.2; BMI 24.1
--- OUTSIDE RECORDS SUMMARY | 2020-08-24 13:49 | XMS ---
:1980 Author Organization [facility] Support Name Relationship Address Phone UE Unavailable Unavailable Unavailable [employer] [address] [place] [address] Re-disclosure Warning The records that you are about to access may contain information from federally- assisted alcohol or drug abuse programs. If such information is present, then the following federally mandated warning applies: This information has been disclosed to you from records protected by federal confidentiality rules (42 CFR part 2). The federal rules prohibit you from making any further disclosure of this information unless further disclosure is expressly permitted by the written consent of the person to whom it pertains or as otherwise permitted by 42 CFR part 2. A general authorization for the release of medical or other information is NOT sufficient for this purpose. The Federal rules restrict any use of the information to criminally investigate or prosecute any alcohol or drug abuse patient.The records that you are about to access may contain highly sensitive health information, the redisclosure of which is protected by Article 27-F of the [facility] Public Health law. If you continue you may haveaccess to information: Regarding HIV / AIDS; Provided by facilities licensed or operated by the [facility] Office of Mental Health; or Provided by the [facility] Office for People With Developmental Disabilities. If such information is present, then the following [facility] mandated warning applies: This information has been disclosed to you from confidential records which are protected by state law. State law prohibits you from making any further disclosure of this information without the specific written consent of the person to whom it pertains, or as otherwise permitted by law. Any unauthorized further disclosure in violation of state law may result in a fine or half-way sentence or both. A general authorization for the release of medical or other information is NOT sufficient authorization for further disclosure. Insurance Providers Payer name Policy type Policy ID Covered Covered republican's Policy P todd / Coverage republican ID relationship to [facility] ormation type [facility] [id number] [facility], [facility] [id number] FIRST
[2020-08-24 15:07] LABS: BASO % 0.3 % (0-2.0); EOS % 2.8 % (0-4.5); HEMATOCRIT 37.5 % (32.4-45.2); HEMOGLOBIN 12.8 GM/dL (10.7-15.3); LYMPH % 37.6 % (8-40); MCH 31.3 pg (25.7-33.7); MCHC 34.1 g/dl (32.0-36.0); MEAN CELL VOLUME 91.8 fl (80-96); MEAN PLT VOLUME 7.9 fl (7.5-11.1); MONO % 5.5 % (3.8-10.2); NEUT % 53.8 % (42.8-82.8); PLATELET COUNT 244 K/MM3 (134-434); RBC 4.08 M/mm3 (3.60-5.2); RDW 13.1 % (11.6-15.6); WHITE BLOOD COUNT 5.3 K/mm3 (4.0-10.0)
[2020-08-24 15:25] LABS: PH,URINE 5.5 (5.0-8.0); URINE APPEARANCE CLEAR; URINE BILIRUBIN NEGATIVE (NEGATIVE); URINE COLOR YELLOW; URINE GLUCOSE (UA) NEGATIVE (NEGATIVE); URINE KETONE NEGATIVE (NEGATIVE); URINE LEUK ESTERASE NEGATIVE (NEGATIVE); URINE NITRITE NEGATIVE (NEGATIVE); URINE PROTEIN NEGATIVE (NEGATIVE)
--- NOTE | 2020-08-24 15:35 | PDOC ---
History of Present Illness - General History Source: Patient Exam Limitations: No Limitations - History of Present Illness Initial Comments: 08/24/20 15:28 39-year-old female , has a 10-week-old child at home currently breast- feeding, history of right ovarian cyst presents complaining of pelvic pain radiating to lower back intermittently x1 week worsening over the past 3 days. Feels bloated, denies nausea, vomiting, diarrhea, fever, chills, urinary complaints, chest pain, shortness of breath, vaginal discharge, vaginal bleeding. States she had an ultrasound approximately 4 weeks ago which " shows a larger ovarian cyst ". Currently awaiting a follow-up appointment date with gynecology. ROS: as above PE: GENERAL: well-appearing, NAD HEAD: NCAT EYES: Pupils equal, round and reactive to light, sclera anicteric, conjunctiva clear ENT: pharynx: no erythema, no exudate, uvula midline NECK: supple CHEST: nontender RESP: clear, no w/r/r CARDIO: rrr, no m/g/r ABD: +BS, soft, nontender, non distended : os closed, no cmt, no blood in vault, no adnexal tenderness to palpation BACK: no midline spinal ttp, no CVAT EXTREMITIES: Normal range of motion, no edema NEUROLOGICAL: Normal speech, normal gait SKIN: Warm, Dry Is this a multiple visit Asthma Patient?: No <Chanelle Cisneros - Last Filed: 08/24/20 16:02> <Nichol Stanley - Last Filed: 08/24/20 16:25> - General Chief Complaint: Pain Stated Complaint: ABD PAIN Time Seen by Provider: 08/24/20 13:31 Past History - Medical History COPD: No DVT: No Dementia: No - Surgical History Abdominal Surgery: Yes Appendectomy: Yes - Reproductive History Is Patient Now?: No (#): 1 Para: 0 - Immunization History Immunization Up to Date: Yes - Psycho-Social/Smoking History Smoking History: Never smoked Have you smoked in the past 12 months: No Information on smoking cessation initiated: No - Substance Abuse Hx (Audit-C & DAST Scrn) How often the patient has a drink containing alcohol: Never Score: In Men: 4 or > Positive; In Women: 3 or > Positive: 0 Screen Result (Pos requires Nsg. Audit-10AR): Negative In the last yr the pt used illegal drug/Rx for NonMed reason: No Score: Yes response is considered Positive: 0 Screen Result (Positive result requires Nsg. DAST-10): Negative <Chanelle Cisneros - Last Filed: 08/24/20 16:02> <Nichol Stanley - Last Filed: 08/24/20 16:25> - Medical History Allergies/Adverse Reactions: Allergies Allergy/AdvReac Type Severity Reaction Status Date / Time No Known Allergies Allergy Verified 08/24/20 13:42 Home Medications: Ambulatory Orders Cephalexin [Keflex] 500 mg PO QID 7 Days #28 capsule 12/08/19 *Physical Exam - Vital Signs Last Vital Signs Temp Pulse Resp BP Pulse Ox 99.2 F 101 H 16 122/89 100 08/24/20 13:38 08/24/20 13:38 08/24/20 13:38 08/24/20 13:38 08/24/20 13:38 <Chanelle Cisneros - Last Filed: 08/24/20 16:02> - Vital Signs Last Vital Signs Temp Pulse Resp BP Pulse Ox 99.2 F 101 H 16 122/89 100 08/24/20 13:38 08/24/20 13:38 08/24/20 13:38 08/24/20 13:38 08/24/20 13:38 <Nichol Stanley - Last Filed: 08/24/20 16:25> ED Treatment Course - LABORATORY CBC & Chemistry Diagram: 08/24/20 14:52 08/24/20 14:52 - ADDITIONAL ORDERS Additional order review: Laboratory Results 08/24/20 15:03 Urine Color Yellow Urine Appearance Clear Urine pH 5.5 Ur Specific Maxwell 1.019 Urine Protein Negative Urine Glucose (UA) Negative Urine Ketones Negative Urine Blood Negative Urine Nitrite Negative Urine Bilirubin Negative Urine Urobilinogen 1.0 Ur Leukocyte Esterase Negative 08/24/20 14:52 RBC 4.08 MCV 91.8 MCHC 34.1 RDW 13.1 MPV 7.9 Neutrophils % 53.8 D Lymphocytes % 37.6 D Monocytes % 5.5 Eosinophils % 2.8 D Basophils % 0.3 - RADIOLOGY Radiology Studies Ordered: Category Date Time Status TRANSVAGINAL ULTRASOUND US [US] Stat Ultrasound 08/24/20 14:37 Ordered <Chanelle Cisneros - Last Filed: 08/24/20 16:02> - LABORATORY CBC & Chemistry Diagram: 08/24/20 14:52 08/24/20 14:52 - ADDITIONAL ORDERS Additional order review: Laboratory Results 08/24/20 08/24/20 15:03 14:52 Sodium 142 Potassium 4.2 Chloride 108 H Carbon Dioxide 32 Anion Gap 2 L BUN 13.0 Creatinine 1.1 Est GFR (CKD-EPI)AfAm 74.28 Est GFR (CKD-EPI)NonAf 64.09 Random Glucose 104 Calcium 8.9 Total Bilirubin 0.4 AST 14 L ALT 20 Alkaline Phosphatase 88 Total Protein 6.9 Albumin 3.9 Lipase 166 Urine Color Yellow Urine Appearance Clear Urine pH 5.5 Ur Specific Maxwell 1.019 Urine Protein Negative Urine Glucose (UA) Negative Urine Ketones Negative Urine Blood Negative Urine Nitrite Negative Urine Bilirubin Negative Urine Urobilinogen 1.0 Ur Leukocyte Esterase Negative 08/24/20 14:52 RBC 4.08 MCV 91.8 MCHC 34.1 RDW 13.1 MPV 7.9 Neutrophils % 53.8 D Lymphocytes % 37.6 D Monocytes % 5.5 Eosinophils % 2.8 D Basophils % 0.3 <Nichol Stanley Lizethtracirose - Last Filed: 08/24/20 16:25> Medical Decision Making - Medical Decision Making 08/24/20 16:02 39-year-old female , has a 10-week-old child at home currently breast- feeding, history of right ovarian cyst presents complaining of pelvic pain radiating to lower back intermittently x1 week worsening over the past 3 days. Feels bloated, denies nausea, vomiting, diarrhea, fever, chills, urinary complaints, chest pain, shortness of breath, vaginal discharge, vaginal bleeding. States she had an ultrasound approximately 4 weeks ago which " shows a larger ovarian cyst ". Currently awaiting a follow-up appointment date with gynecology. labs reviewed Awaiting transvaginal ultrasound results signed out to DOLORES Nice <Chanelle Cisneros - Last Filed: 08/24/20 16:02> - Medical Decision Making The patient was seen and evaluated in conjunction with midlevel provider under my direct supervision, ancillary studies were reviewed. I agree with the plan as outlined with DOLORES Cisneros. HPI, workup/dispo as outlined. VS reviewed, wnl. Vital Signs Temp Pulse Resp BP Pulse Ox 99.2 F 101 H 16 122/89 100 08/24/20 13:38 08/24/20 13:38 08/24/20 13:38 08/24/20 13:38 08/24/20 13:38 labs wnl. UA negative for infection. 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
[2020-08-24 15:40] LABS: ALBUMIN 3.9 g/dl (3.4-5.0); BILIRUBIN,TOTAL 0.4 mg/dL (0.2-1); CALCIUM 8.9 mg/dL (8.5-10.1); CREATININE 1.1 mg/dL (0.55-1.3); POTASSIUM 4.2 mmol/L (3.5-5.1); TOT PROT 6.9 g/dl (6.4-8.2)
--- NOTE | 2020-08-24 16:12 | PDOC ---
*Physical Exam - Vital Signs Last Vital Signs Temp Pulse Resp BP Pulse Ox 99.2 F 101 H 16 122/89 100 08/24/20 13:38 08/24/20 13:38 08/24/20 13:38 08/24/20 13:38 08/24/20 13:38 - Physical Exam 08/24/20 16:11 Briefly this is a 39-year-old female G2, P2 10 weeks complaining of pelvic pain. Patient has all labs within normal limits and clean UA and is pending transvaginal ultrasound. Physical exam significant for right lower abdominal tenderness without rebound or guarding Transvaginal ultrasound shows interval enlargement of a nonspecific right ovarian cyst in comparison to a prior exam on November 30, 2019 the right ovarian cyst was 5 x 5 x 4 cm currently the ovarian cyst is 9.5 x 9 x 6.8 cm There is no Doppler evidence of right ovarian torsion There is no free intraperitoneal fluid There is no obvious uterine pathology Patient instructed to follow-up with [facility] without fail and to take Tylenol for pain only Pt appears well and is safe and stable for discharge with strict return precautions including signs and symptoms requring immediate return to the ED Supportive care instructions explained and given to pt. Reasons to return emergently to ER explained and given. Importance of follow up with PMD and other specialists as indicated stressed to pt. Pt verbalized understanding of instructions. Pt to follow up with PMD in 2 days. ED Treatment Course - LABORATORY CBC & Chemistry Diagram: 08/24/20 14:52 08/24/20 14:52 - ADDITIONAL ORDERS Additional order review: Laboratory Results 08/24/20 08/24/20 15:03 14:52 Sodium 142 Potassium 4.2 Chloride 108 H Carbon Dioxide 32 Anion Gap 2 L BUN 13.0 Creatinine 1.1 Est GFR (CKD-EPI)AfAm 74.28 Est GFR (CKD-EPI)NonAf 64.09 Random Glucose 104 Calcium 8.9 Total Bilirubin 0.4 AST 14 L ALT 20 Alkaline Phosphatase 88 Total Protein 6.9 Albumin 3.9 Lipase 166 Urine Color Yellow Urine Appearance Clear Urine pH 5.5 Ur Specific [place] 1.019 Urine Protein Negative Urine Glucose (UA) Negative Urine Ketones Negative Urine Blood Negative Urine Nitrite Negative Urine Bilirubin Negative Urine Urobilinogen 1.0 Ur Leukocyte Esterase Negative 08/24/20 14:52 RBC 4.08 MCV 91.8 MCHC 34.1 RDW 13.1 MPV 7.9 Neutrophils % 53.8 D Lymphocytes % 37.6 D Monocytes % 5.5 Eosinophils % 2.8 D Basophils % 0.3 Discharge - Discharge Information Problems reviewed: Yes Clinical Impression/Diagnosis: Right sided abdominal pain Condition: Stable Disposition: HOME - Follow up/Referral Referrals: Kaylan Young MD [Primary Care Provider] - - Patient Discharge Instructions Patient Printed Discharge Instructions: DI for Ovarian Cyst - Post Discharge Activity
== END 2020-08-24 17:21 | disposition home or self-care (01) ==
LOC: JER 13:26
DX: R10.9 Unspecified abdominal pain (principal)
CPT/HCPCS: 36415; 76830-TC; 80053; 81003; 83690; 85025; 87086; 99284-25

== ENCOUNTER 2022-03-13 09:26 | Emergency (ER) | payer OTHER ==
[2022-03-13 09:38] VITALS: BP 123/70; PULSE 97; TEMP 98.1; BMI 24.1
[2022-03-14 16:08] LABS: SARS-CoV-2 NAA Not Detected (Not Detected)
== END 2022-03-13 12:26 | disposition home or self-care (01) ==
LOC: JER 09:26
DX: J01.10 Acute frontal sinusitis, unspecified (principal)
CPT/HCPCS: 87651; 99283-25; C9803-CS; U0003; U0005

== ENCOUNTER 2022-03-21 16:05 | Emergency (ER) | payer OTHER ==
[2022-03-21 16:39] VITALS: BP 105/59; PULSE 85; TEMP 98.8; BMI 23.3
[2022-03-22 18:09] LABS: SARS-CoV-2 NAA Not Detected (Not Detected)
== END 2022-03-21 18:55 | disposition home or self-care (01) ==
LOC: JER 16:05
DX: J02.9 Acute pharyngitis, unspecified (principal)
CPT/HCPCS: 87651; 87804; 87807; 99283-25; C9803-CS; U0003; U0005

== ENCOUNTER 2023-02-07 09:28 | Emergency (ER) | payer OTHER ==
[2023-02-07 09:42] VITALS: BP 122/68; PULSE 94; RESP 18; TEMP 98.1; BMI 22.9
[2023-02-07] MEDS ORDERED: IBUPROFEN 600 MG TABLET (FP) PO ONE ×2 (09:55→10:01)
[2023-02-07] MEDS ORDERED: AMOX TR/POT CLAV 875MG/125MG TABLETS (FP) PO ONE (09:55)
[2023-02-07] MEDS ORDERED: AMOX TR/POT CLAV 875MG/125MG TABLETS (FP) ONE (10:01)
== END 2023-02-07 10:14 | disposition home or self-care (01) ==
LOC: JER 09:28 → JERFT 09:28
DX: J01.10 Acute frontal sinusitis, unspecified (principal); J02.9 Acute pharyngitis, unspecified; Z20.822 Contact with and (suspected) exposure to COVID-19
CPT/HCPCS: 0241U-QW; 87651; 99283-25

== ENCOUNTER 2023-02-10 14:21 | Emergency (ER) | payer OTHER ==
[2023-02-10 14:32] VITALS: BP 127/68; PULSE 80; RESP 18; TEMP 98; BMI 22.9
[2023-02-10] MEDS ORDERED: LACTATED RINGERS SOLUTION 1000 ML INFUS.BAG IV ONE (14:59)
[2023-02-10] MEDS ORDERED: ACETAMINOPHEN 1000 MG/100 ML BAG IVPB ONE (14:59)
[2023-02-10] MEDS ORDERED: DEXAMETHASONE SOD PHOSPHATE 10 MG/1 ML VIAL IVPUSH ONE (15:00)
[2023-02-10] MEDS ORDERED: KETOROLAC TROMETHAMINE 15 MG/ML VIAL IVPUSH ONE (15:06)
[2023-02-10] MEDS ORDERED: DEXAMETHASONE SOD PHOSPHATE 10 MG/1 ML VIAL ONE (15:09)
[2023-02-10] MEDS ORDERED: KETOROLAC TROMETHAMINE 15 MG/ML VIAL ONE (15:09)
[2023-02-10] MEDS ORDERED: ACETAMINOPHEN INJECTION 100 ML IVPB ONE (15:09)
[2023-02-10 15:23] LABS: BASO % 0.3 % (0-2.0); EOS % 1.1 % (0-4.5); HEMATOCRIT 33.6 % (32.4-45.2); HEMOGLOBIN 11.4 GM/dL (10.7-15.3); LYMPH % 22.6 % (8-40); MCH 29.5 pg (25.7-33.7); MEAN CELL VOLUME 86.7 fl (80-96); MONO % 11.3 % (3.8-10.2); NEUT % 64.7 % (42.8-82.8); PLATELET COUNT 234 10^3/uL (134-434); RBC 3.87 M/mm3 (3.60-5.2); RDW 12.5 % (11.6-15.6); WHITE BLOOD COUNT 6.8 K/mm3 (4.0-10.0)
[2023-02-10 15:40] LABS: CALCIUM 9.1 mg/dL (8.5-10.1)
[2023-02-10 15:41] LABS: ALBUMIN 3.6 g/dl (3.4-5.0); BLOOD UREA NITROGEN 9.1 mg/dL (7-18)
[2023-02-10 15:44] LABS: CREATININE 0.6 mg/dL (0.55-1.3)
[2023-02-10 15:45] LABS: BILIRUBIN,TOTAL 0.4 mg/dL (0.2-1); TOT PROT 7.4 g/dl (6.4-8.2)
[2023-02-10 16:07] LABS: THROAT:GRP A STREP NOT DETECTED (NOTDETECTED)
== END 2023-02-10 19:46 | disposition home or self-care (01) ==
LOC: JER 14:21 → JERFT 14:21
PROC: 3E033NZ Introduction of Analgesics, Hypnotics, Sedatives into Peripheral Vein, Percutaneous Approach (ICD-10-PCS; principal; 2023-02-10)
PROC: 3E033GC Introduction of Other Therapeutic Substance into Peripheral Vein, Percutaneous Approach (ICD-10-PCS; 2023-02-10)
PROC: 3E033GC Introduction of Other Therapeutic Substance into Peripheral Vein, Percutaneous Approach (ICD-10-PCS; 2023-02-10)
DX: J01.00 Acute maxillary sinusitis, unspecified (principal); R50.9 Fever, unspecified; M54.2 Cervicalgia; Z20.822 Contact with and (suspected) exposure to COVID-19
CPT/HCPCS: 0241U-QW; 36415; 70491-TC; 80053; 84703; 85025; 86308; 87651; 99285-25; J1100; Q9967